=== PATIENT | male | born 1965 | race Caucasian/White ===

== ENCOUNTER 2019-08-22 06:32 | Day surgery (SDC) | payer MEDICARE ==
[~2019-08-22] VITALS: Ht 172.7 cm; Wt 106.9 kg
[2019-08-22] MEDS ORDERED: normal saline 1000ml 1,000 ML IV PRN (07:00)
[2019-08-22] MEDS ORDERED: CALC500T11 PO (07:17)
[2019-08-22] MEDS ORDERED: POLY119P2 PO (07:17)
[2019-08-22] MEDS ORDERED: CYCL10TA26 PO (07:17)
[2019-08-22] MEDS ORDERED: FURO-149 PO (07:17)
[2019-08-22] MEDS ORDERED: FLO0.4C PO (07:17)
[2019-08-22] MEDS ORDERED: DOCU100C40 PO (07:17)
[2019-08-22] MEDS ORDERED: OXYC-658 PO (07:17)
[2019-08-22 07:45] VITALS: BP 152/85
[2019-08-22 08:16] LABS: BASOPHILS # (AUTO) 0.1 X10'3 (0-0.2); BASOPHILS % (AUTO) 0.8 % (0-1); EOSINOPHILS # (AUTO) 0.5 X10'3 (0-0.9); EOSINOPHILS % (AUTO) 7.1 % (0-6); HEMATOCRIT 35.4 % (42.0-52.0); LYMPHOCYTES # (AUTO) 1.7 X10'3 (1.1-4.8); LYMPHOCYTES % (AUTO) 22.4 % (21-51); MEAN CORPUSCULAR HGB CONC 33.8 g/dL (33.0-36.5); MEAN CORPUSCULAR VOLUME 94.5 FL (78-98); MEAN PLATELET VOLUME 8.5 FL (7.4-10.4); MONOCYTES # (AUTO) 0.6 X10'3 (0-0.9); MONOCYTES % (AUTO) 7.9 % (2-12); NEUTROPHILS # (AUTO) 4.6 X10'3 (1.8-7.7); NEUTROPHILS % (AUTO) 61.8 % (42-75); PLATELET COUNT 229 X10'3 (140-440); RED BLOOD COUNT 3.75 X10'6 (4.70-6.10); RED CELL DISTRIBUTION WIDTH 15.5 % (11.5-14.5); WHITE BLOOD COUNT 7.5 X10'3 (4.5-11.0)
[2019-08-22] MEDS ORDERED: heparin 1,000 UNITS/NS 500ml 500 ML ONE (08:18)
[2019-08-22] MEDS ORDERED: midazolam 2 mg/2 ml injection ONE ×3 (08:18→09:02)
[2019-08-22] MEDS ORDERED: fentaNYL/PF 50MCG/1 ML 2ML syringe ONE ×2 (08:18→09:02)
[2019-08-22] MEDS ORDERED: LIDOcaine 1%/PF 5ML 10 MG/ML VIAL ONE (08:18)
[2019-08-22] MEDS ORDERED: iohexol 300mg/ml 100ml inj. ONE (08:19)
[2019-08-22 08:20] LABS: ALBUMIN 3.6 G/DL (3.4-5.0); ANION GAP 12 (8-16); CALCIUM 8.3 MG/DL (8.5-10.1); CHLORIDE 98 MMOL/L (99-107); GLUCOSE 185 MG/DL (70-104); POTASSIUM 3.9 MMOL/L (3.5-5.1); SODIUM 139 MMOL/L (135-145); TOTAL CARBON DIOXIDE 29.1 MMOL/L (24-32)
[2019-08-22 08:26] LABS: BLOOD UREA NITROGEN 45 MG/DL (7-18); BUN/CREATININE RATIO 4.8 (5.4-32.0); CREATININE 9.31 MG/DL (0.60-1.10); eGFR 6 ML/MIN
[2019-08-22] MEDS ORDERED: heparin 1,000unit/ml 10ml vial 10 ML ONE (09:03)
[2019-08-22 09:32] VITALS: BP 140/74
[2019-08-22 09:46] VITALS: BP 130/71
[2019-08-22 10:01] VITALS: BP 138/78
[2019-08-22 10:16] VITALS: BP 147/75
[2019-08-22 10:32] VITALS: BP 147/79
== END 2019-08-22 10:45 | disposition home or self-care (01) ==
LOC: SSTAY O 06:32
PROVIDERS: ATTEND Radiology Vascular & Interventional Radiology
DX: T82.858A Stenosis of other vascular prosthetic devices, implants and grafts, initial encounter (principal); E11.22 Type 2 diabetes mellitus with diabetic chronic kidney disease; N18.6 End stage renal disease; Z99.2 Dependence on renal dialysis; Z72.89 Other problems related to lifestyle; Z98.890 Other specified postprocedural states; Y83.8 Other surgical procedures as the cause of abnormal reaction of the patient, or of later complication, without mention of misadventure at the time of the procedure; Y92.89 Other specified places as the place of occurrence of the external cause
CPT/HCPCS: 36415; 36902; 80048; 85025; 85610; 99152; 99153; J1644; J2250; J3010; Q9967